=== PATIENT | male | born 1970 | race Caucasian/White ===

== ENCOUNTER → 2020-10-26 | Outpatient (CLI) | payer MEDICARE ==
[~2020-10-26] MED LIST: CATHETER FLUSH 10 ML SYR IV PRN; HOLD METFORMIN - RECEIVED CONTRAST 20 ML VIAL IV SCH; IOHEXOL 350 MG/ML 100 ML (OMNIPAQUE 350) VIAL IV ONE; NS 100 ML (IVPB) BAG IV ONE
--- NOTE | 2020-10-26 15:49 | Diagnostic Imaging Report ---
EXAMINATION: CT Abdomen and Pelvis with intravenous contrast. TECHNIQUE: Multiple contiguous axial images were obtained through the abdomen and pelvis after the uneventful administration of intravenous contrast. All CT scans use one or more of the following dose optimizing techniques: automated exposure control, MA and/or KvP adjustment based on a patient size and exam type, or iterative reconstruction. HISTORY: LUQ PAIN COMPARISON: None available. FINDINGS: Lung bases: The lung bases are clear. Solid organs: The liver is normal without focal lesion. The gallbladder is normal. There is no biliary ductal dilation. Pancreas is normal. Spleen is normal. Adrenal glands are normal. The kidneys are normal without hydronephrosis. Bowel: The stomach and small bowel are normal without obstruction. There is minimal scattered colonic diverticulosis. The appendix is normal. Peritoneum: There is no intraperitoneal free fluid or free air. No suspicious lymphadenopathy. Vasculature: Calcification of the aorta without aneurysm. Musculoskeletal: Degenerative changes of the spine without suspicious osseous lesion or compression fracture. Surgical changes from L3 through L5 laminectomy. Pelvis: The prostate gland is normal. The urinary bladder is normal. IMPRESSION: 1. No acute abnormality in the abdomen or pelvis. 2. Minimal colonic diverticulosis without findings of diverticulitis. Dictated by: Dictated on workstation # [id number]
== END ==
LOC: RAD FS 14:58
PROVIDERS: ATTEND Family Medicine
DX: K57.30 Diverticulosis of large intestine without perforation or abscess without bleeding (principal)
CPT/HCPCS: 74177

== ENCOUNTER → 2021-08-07 | Outpatient (CLI) | payer MEDICARE ==
--- NOTE | 2021-08-07 15:42 | Diagnostic Imaging Report ---
INDICATION: Exacerbation of COPD. Left rib pain. TECHNIQUE: A frontal view of the chest and five additional views of the left ribs were obtained. FINDINGS: The heart size and vascularity are normal. The lungs are clear. There is no effusion or pneumothorax. No rib fracture or other bony abnormality is seen. IMPRESSION: No abnormality of the chest or left ribs is seen. Dictated by: Dictated on workstation # [id number]
== END ==
LOC: RAD FS 14:31
PROVIDERS: ATTEND Allergy & Immunology
DX: J44.9 Chronic obstructive pulmonary disease, unspecified (principal)
CPT/HCPCS: 71101

== ENCOUNTER → 2022-08-07 | Outpatient (CLI) | payer MEDICARE ==
--- NOTE | 2022-08-07 15:54 | Diagnostic Imaging Report ---
INDICATION: Diarrhea, abdominal pain. TECHNIQUE: Multiple contiguous axial images were obtained through the abdomen and pelvis after administration of intravenous contrast. Auto Exposure Controls were utilized during the CT exam to meet ALARA standards for radiation dose reduction. All CT scans use one or more of the following dose optimizing techniques: automated exposure control, MA and/or KvP adjustment based on patient size and exam type or iterative reconstruction. COMPARISON: 10/26/2020. FINDINGS: The visualized portions of the lung bases are clear. There are no pleural fluid collections. There is no free intraperitoneal air. The liver shows no focal lesion. The patient has had previous cholecystectomy. The spleen, adrenals, and pancreas are normal. The kidneys bilaterally show no hydronephrosis or stone. There is a benign-appearing cyst in the lower pole of the left kidney. There is no retroperitoneal mass or adenopathy. There is no ascites or abnormal fluid collection. There is no pelvic mass or lymphadenopathy. There are no signs of bowel obstruction or focal bowel wall thickening. There is moderate stool in the colon. The appendix appears unremarkable. IMPRESSION: Essentially unremarkable CT of the abdomen and pelvis. No acute finding. Dictated by: Dictated on workstation # [id number]
== END ==
LOC: RAD FS 12:57
PROVIDERS: ATTEND Allergy & Immunology
DX: R10.9 Unspecified abdominal pain (principal); M54.50 Low back pain, unspecified; R19.7 Diarrhea, unspecified
CPT/HCPCS: 74177; Q9967